=== PATIENT | female | born 1950 | race Caucasian/White ===

== ENCOUNTER 2025-01-27 10:12 | Day surgery (SDC) | payer MEDICARE, SELFPAY ==
--- NOTE | 2025-01-22 11:25 | RAD_ITS ---
PROCEDURE: CHEST PA AND LATERAL 01/22/2025 REASON FOR EXAM: FOR PPM GENERATOR CHANGE TECHNIQUE: CHEST PA AND LATERAL COMPARISON: None. RAD/Chest PA and Lateral IMPRESSION: Moderate degenerative changes of the visualized spine noted. An upper thoracic vertebral body shows chronic moderately severe compression. Milder compression seen at other vertebral bodies in this osteope chelo patient. Lungs are moderately severely hyperinflated with increased interstitial marking s, consistent with chronic lung disease. No pleural effusion or pneumothorax is evident. The cardiomediastinal silhouette is remarkable for a partially calcified aorta. No evidence of cardiomegaly. Left thoracic transvenous pacemaker with atrial and ventricular leads in place. Reading Location: [place] [id number]
[2025-01-22 11:43] LABS: Mucous, Urine 0 SEEN /hpf (<or=2+); Red Blood Cells-Urine 0 SEEN /hpf (0-5)
[2025-01-22 12:39] LABS: Hematocrit 34.4 % (37-47); Hemoglobin 10.8 g/dL (12.0-15.0); Mean Corp Hgb Conc 31.4 g/dL (32-36); Mean Corpuscular Volume 96.9 fL (81-99); Mean Platelet Vol. 11.3 fl (6.2-12.0); Platelet Count 155 K/mm3 (150-450); RBC Distribution Width CV 13.2 % (11.6-14.6); RBC Distribution Width SD 47.7 fl (35.1-43.9); Red Blood Count 3.55 M/mm3 (4.2-5.4); White Blood Count 4.7 K/mm3 (4.4-11.0)
[2025-01-22 12:48] LABS: Prothrombin Time (Protime)PT. 14.9 SECONDS (11.7-14.9)
[2025-01-22 13:07] LABS: Color, Urine Yellow (Yellow); Glucose, Dipstick Normal (Normal); Ketone-Dipstick Negative (Negative); Leukocyte Esterase-Dipstick Negative /ul (Negative); Nitrite-Dipstick Negative (Negative); Occult Blood-Urine Negative /ul (Negative); Protein-Dipstick 15 mg/dl (Negative); Specific Gravity, Urine 1.020 (1.002-1.030); Urine Bilirubin Dipstick Negative (Negative)
[2025-01-22 13:16] LABS: Squamous Epithelial Cells - UA 0-5 SEEN /hpf (5-10)
[2025-01-22 13:19] LABS: AST(SGOT) 22 U/L (<=31); Alanine Aminotransfer ALT/SGPT 28 U/L (<=34); Albumin, Serum 4.0 g/dL (3.4-4.8); Alkaline Phosphatase 102 U/L (35-104); Bilirubin, Direct 0.15 mg/dL (0.00-0.30); Cholesterol 154 mg/dL (<=200); Globulin 3.2 g/dL (2.2-4.2); Low Density Lipoprotein Calc. 65 mg/dL; Triglycerides 78 mg/dL; Very Low Density Lipoprotein 16 mg/dL (5-40); cholesterol:hdl ratio screen 2.11
[2025-01-22 13:21] LABS: Anion Gap 12 (5-15); BUN 33 mg/dL (4-19); BUN/Creat Ratio 42.8 RATIO (10-20); Calcium,Total 9.6 mg/dL (7.6-11.0); Carbon Dioxide 20.4 mmol/L (21.0-32.0); Chloride 111 mmol/L (98-108); Glucose 92 mg/dL (70-99); Potassium 4.9 mmol/L (3.3-5.1)
[2025-01-26 13:23] VITALS: BMI 23.0
--- NOTE | 2025-03-02 09:46 | CL.IE_ITS ---
Patient: BERTRAND GRIFFIN Study Date: 01/27/2025 Performing: Merritt Jennings MD : 1950 Age: 74 Gender: female PROCEDURES PERFORMED LP07-(16670)BATTERY REMOVAL+REPLACEMENT PACER-DUAL LEAD INDICATIONS Atrial fibrillation and complete heart block PROCEDURE DETAILS The patient was brought to the Catheterization Lab in the postabsorptive nonsedated state. Informed consent was obtained prior to the procedure. Local anesthetic was given subcutaneously to the left subclavian region with Lidocaine 2%. Incision was made to the left subclavicular area. New PPM generator was attached to the lead(s) and inserted into the pocket. PPM generator was then interrogated by the coordinate measuring machine programmer. Device pocket was irrigated with antibiotic. Subcutaneous closure was completed with 3-0 Vicryl. Skin closure was completed with 4-0 Vicryl. The patient tolerated the procedure well. Estimated Blood Loss: 5 ml's IMPLANTED / EX-PLANTED DEVICES IMPLANTED DEVICE(S): PPM Generator - Cell Efficiency Supervisor: [employer], Model # Angela XT DR RICKY Rendon , Serial # [id number] DEVICE PARAMETERS ATRIAL LEAD PARAMETERS: P wave- 1.0 (mV) threshold- 1.5 (V) impedence- 323 (OHMS) VENTRICULAR LEAD PARAMETERS: R wave- 0.9 (mV) threshold- 2.0 (V) impedence- 380 (OHMS) DEVICE PARAMETERS: Mode- DDD Lower rate- 60 Upper rate- 130 CONCLUSIONS / RECOMMENDATIONS Device Conclusions: Successful implantation of a dual chamber pacemaker Device Recommendations: Follow up with Primary Care Physician PROCEDURE MEDICATIONS Versed 0.5 mg IV Fentanyl 25 mcg IV Versed 0.5 mg IV Oxygen: 2 L/min via nasal cannula Antibiotic given in appropriate timeframe. Ancef 1 Gm IV @ 01/27/2025 11:51:27 Signed By Merritt Jennings MD On 01/27/2025 12:54:17 Merritt Jennings MD
== END 2025-01-27 13:50 | disposition home or self-care (01) ==
PROVIDERS: Nurse Practitioner Family; PCP Nurse Practitioner Family; Referring Provider Internal Medicine Cardiovascular Disease; Visit Provider Internal Medicine Cardiovascular Disease
DX: Z45.010 Encounter for checking and testing of cardiac pacemaker pulse generator [battery] (principal); I44.2 Atrioventricular block, complete; I48.0 Paroxysmal atrial fibrillation; I10 Essential (primary) hypertension; R60.1 Generalized edema; E78.5 Hyperlipidemia, unspecified; Z87.11 Personal history of peptic ulcer disease; Z87.19 Personal history of other diseases of the digestive system; Z79.01 Long term (current) use of anticoagulants; Z79.899 Other long term (current) drug therapy
CPT/HCPCS: 33228; 36415; 71046; 80048; 80061; 80076; 81001; 85027; 85610; 99152; 99153